=== PATIENT | female | born 1960 | race Caucasian/White ===

== ENCOUNTER 2021-12-16 07:21 | Outpatient (CLI) | payer BC ==
[2021-12-16] MEDS ORDERED: Iopamidol 370 76% 100 ML VIAL ONE (15:14)
== END 2021-12-16 07:22 | disposition home or self-care (01) ==
LOC: CT 07:21
PROVIDERS: ATTEND Internal Medicine Hematology & Oncology
DX: C54.1 Malignant neoplasm of endometrium (principal); E07.89 Other specified disorders of thyroid; K43.9 Ventral hernia without obstruction or gangrene; N32.89 Other specified disorders of bladder; M47.816 Spondylosis without myelopathy or radiculopathy, lumbar region; M48.061 Spinal stenosis, lumbar region without neurogenic claudication
CPT/HCPCS: 71260; 74177; 82565